=== PATIENT | male | born 1930 | race Caucasian/White ===

== ENCOUNTER 2019-05-06 20:22 | Emergency (ER) | payer OTHER ==
[~2019-05-06] VITALS: Ht 172.7 cm; Wt 72.6 kg
[~2019-05-06 20:22] MED LIST: ALBU90OI INH; ASCO500 PO; ASPI81CH PO; BUDE6HFA INH; CHOL10002 PO; DOXE75C PO; DULERA 100 MCG/13 GM INH; Duoneb 2.5-0.5 M3 ML IH; GEMF600 PO; HYDCOR2.5B TOP; LEVSOD75 PO; MONT10T PO; OMEPRAZOLE MAGN20 MG PO; PRIM50 PO; PROSTATE SUPPORT PO; Vitamin B Comple1 EA PO
[2019-05-06 20:46] LABS: BASOPHILS ABSOLUTE AUTO 0.03 K/mm3 (0.00-0.23); BASOPHILS PERCENT AUTO 1 % (0-2); EOSINOPHILS ABSOLUTE AUTO 0.18 K/mm3 (0.00-0.68); EOSINOPHILS PERCENT AUTO 4 % (0-6); Hematocrit 42.4 % (37.0-53.0); IMMATURE GRAN ABSOLUTE AUTO 0.01 K/mm3 (0.00-0.10); IMMATURE GRAN PERCENT AUTO 0 % (0-1); LYMPHOCYTES ABSOLUTE AUTO 0.91 K/mm3 (0.84-5.20); LYMPHOCYTES PERCENT AUTO 19 % (21-46); MONOCYTES ABSOLUTE AUTO 0.63 K/mm3 (0.16-1.47); MONOCYTES PERCENT AUTO 13 % (4-13); Mean Corpuscular Volume 91 fL (80-100); Mean Platelet Volume 10.1 fL (9.1-12.4); NEUTROPHILS ABSOLUTE AUTO 3.06 K/mm3 (1.96-9.15); NEUTROPHILS PERCENT AUTO 64 % (41-73); Platelet Count 191 K/mm3 (150-400); RDW Coefficient Variation 13.2 % (11.7-14.2); RDW Standard Deviation 44.3 fL (35.1-46.3); Red Blood Cell Count 4.66 M/mm3 (4.30-5.90); White Blood Cell Count 4.82 K/mm3 (4.00-11.30)
[2019-05-06 21:03] LABS: Alanine Aminotransfer (ALT/SGP 17 U/L (12-78); Albumin, Blood 3.5 g/dL (3.4-5.0); Albumin/Globulin Ratio 0.9 (0.8-1.8); Alk Phos 91 U/L (50-136); Anion Gap 3 mmol/L (6-16); Aspartate Aminotrans (AST/SGOT 20 U/L (12-37); Bilirubin, Total 0.4 mg/dL (0.1-1.0); Blood Urea Nitrogen 25 mg/dL (8-24); CO2, Blood 29 mmol/L (21-32); Calcium, Blood 8.9 mg/dL (8.5-10.1); Chloride, Blood 104 mmol/L (98-108); Creatinine, Blood 1.47 mg/dL (0.60-1.20); Ethanol (Alcohol), Blood, Med <3 mg/dL; Globulin, Blood 3.7 g/dL (2.2-4.0); Glomerular Filtration Rate 48 (60-); Glucose, Blood 97 mg/dL (70-99); Potassium, Blood 3.5 mmol/L (3.5-5.5); Sodium, Blood 136 mmol/L (136-145); Total Protein, Blood 7.2 g/dL (6.4-8.2)
[2019-05-06 21:49] LABS: Source, Urine Clean Catch
[2019-05-06 21:51] LABS: Bilirubin, Urine Neg (Neg); Blood, Urine Neg (Neg); Glucose Qualitative, Urine Neg (Neg); Ketones, Urine Neg (Neg); Leukocyte Esterase, Urine Neg (Neg); Nitrite, Urine Neg (Neg); Protein, Urine Neg (Neg); Urobilinogen, Urine NORM (Normal)
[2019-05-06 21:55] LABS: Appearance, Urine Clear (Clear); Color, Urine Yellow (P-Yellow)
[2019-05-06 22:06] LABS: U Amphetamine Screen Not Detected; U Barbituate Screen DETECTED; U Benzodiazapine Screen DETECTED; U Cocaine Screen Not Detected; U Methadone Screen Not Detected; U Methamphetamine Screen Not Detected; U Opiates Screen Not Detected
[2019-05-06 22:07] LABS: U Buprenorphine Screen Not Detected; U Cannabinoids Screen Not Detected; U Oxycodone Screen Not Detected; U Propoxyphene Screen Not Detected
== END 2019-05-07 02:08 | disposition home or self-care (01) ==
LOC: ER 20:22
PROVIDERS: Emergency Medicine
DX: G45.9 Transient cerebral ischemic attack, unspecified (principal); J44.9 Chronic obstructive pulmonary disease, unspecified; Z79.82 Long term (current) use of aspirin; Z79.899 Other long term (current) drug therapy; Z87.891 Personal history of nicotine dependence
CPT/HCPCS: 70450; 71046; 80053; 81003; 85025; 93005; 93010; 99285-25; G0480

== ENCOUNTER 2020-04-08 05:34 | Emergency (ER) | payer OTHER ==
[~2020-04-08] VITALS: Ht 172.7 cm; Wt 68.5 kg
[~2020-04-08 05:34] MED LIST changes: -ASPI81CH PO; +Aspirin EC81 MG PO
[2020-04-08] MEDS ORDERED: HYDR1TAB94 PO (06:52)
== END 2020-04-08 10:53 | disposition home or self-care (01) ==
LOC: ER 05:34
DX: S42.212A Unspecified displaced fracture of surgical neck of left humerus, initial encounter for closed fracture (principal); J44.9 Chronic obstructive pulmonary disease, unspecified; Z79.82 Long term (current) use of aspirin; Z79.51 Long term (current) use of inhaled steroids; Z79.899 Other long term (current) drug therapy; Z86.73 Personal history of transient ischemic attack (TIA), and cerebral infarction without residual deficits; Z87.891 Personal history of nicotine dependence; W18.30XA Fall on same level, unspecified, initial encounter
CPT/HCPCS: 29105; 73060; 96374-59; 99283-25; A9270; J3010

== ENCOUNTER 2020-04-15 15:38 | Inpatient (IN) | payer OTHER ==
[~2020-04-15] VITALS: Ht 172.7 cm; Wt 64.4 kg
[~2020-04-15 15:38] MED LIST changes: +HYDR1TAB94 PO
[2020-04-15 17:31] LABS: BASOPHILS ABSOLUTE AUTO 0.04 K/mm3 (0.00-0.23); BASOPHILS PERCENT AUTO 1 % (0-2); EOSINOPHILS ABSOLUTE AUTO 0.25 K/mm3 (0.00-0.68); EOSINOPHILS PERCENT AUTO 3 % (0-6); Hematocrit 41.9 % (37.0-53.0); Hemoglobin 13.5 g/dL (13.5-17.5); IMMATURE GRAN ABSOLUTE AUTO 0.04 K/mm3 (0.00-0.10); IMMATURE GRAN PERCENT AUTO 1 % (0-1); LYMPHOCYTES ABSOLUTE AUTO 0.63 K/mm3 (0.84-5.20); LYMPHOCYTES PERCENT AUTO 8 % (21-46); MONOCYTES ABSOLUTE AUTO 0.97 K/mm3 (0.16-1.47); MONOCYTES PERCENT AUTO 13 % (4-13); Mean Corpuscular HGB 28.4 pg (26.0-34.0); Mean Corpuscular HGB Conc 32.2 g/dL (31.5-36.5); Mean Corpuscular Volume 88 fL (80-100); Mean Platelet Volume 9.1 fL (9.1-12.4); NEUTROPHILS ABSOLUTE AUTO 5.79 K/mm3 (1.96-9.15); NEUTROPHILS PERCENT AUTO 75 % (41-73); Platelet Count 344 K/mm3 (150-400); RDW Standard Deviation 45.1 fL (35.1-46.3); Red Blood Cell Count 4.75 M/mm3 (4.30-5.90); White Blood Cell Count 7.72 K/mm3 (4.00-11.30)
[2020-04-15 17:48] LABS: Alanine Aminotransfer (ALT/SGP 45 U/L (12-78); Albumin, Blood 3.2 g/dL (3.4-5.0); Albumin/Globulin Ratio 0.8 (0.8-1.8); Alk Phos 94 U/L (50-136); Anion Gap 3 mmol/L (6-16); Aspartate Aminotrans (AST/SGOT 33 U/L (12-37); Bilirubin, Total 0.6 mg/dL (0.1-1.0); Blood Urea Nitrogen 32 mg/dL (8-24); Bun/Creatinine Ratio 28.1 (12.0-20.0); CO2, Blood 30 mmol/L (21-32); Calcium, Blood 8.7 mg/dL (8.5-10.1); Chloride, Blood 104 mmol/L (98-108); Creatinine, Blood 1.14 mg/dL (0.60-1.20); Globulin, Blood 3.9 g/dL (2.2-4.0); Glomerular Filtration Rate >60 (60-); Glucose, Blood 105 mg/dL (70-99); Potassium, Blood 3.8 mmol/L (3.5-5.5); Sodium, Blood 137 mmol/L (136-145); Total Protein, Blood 7.1 g/dL (6.4-8.2)
[2020-04-15 20:35] LABS: International Normalized Ratio 0.96; Prothrombin Time Results 10.3 Sec (9.7-11.5)
[2020-04-15] MEDS ORDERED: SYNTHROID125 MC1 PO (20:46)
[2020-04-15] MEDS ORDERED: TRAM50 PO (20:47)
[2020-04-15] MEDS ORDERED: Primidone50 MG PO (20:48)
[2020-04-15] MEDS ORDERED: OMEP20ER PO (20:48)
[2020-04-15 22:59] LABS: Influenza A, PCR Negative (NEGATIVE); Influenza B, PCR Negative (NEGATIVE); Resp Syncytial Virus, PCR Negative (NEGATIVE); SARS-Cov-2 (COVID-19) PCR, MMC Negative (NEGATIVE)
--- NOTE | 2020-04-16 01:00 | NUR ---
PT TO ICU 5 VIA [facility] WITH ED RN AND BODY DESIGNER. PT CONFUSED, SAYS WORDS BUT DOES NOT MAKE COMPLETE SENTENCES, FOLLOWS SOME COMMANDS. O2 SATURATIONS> 90% ON RA. MONITOR SHOWS SINUS RHYTHM WITH PAC'S, HTN NOTED WITH SBP 160'S. PER REPORT, PT RECENTLY TREATED FOR SHINGLES BY PCP, LESIONS NOTED TO BACK OF LEFT EAR AND BACK OF LEFT SIDE OF HEAD, L EAR HAS SCAB PRESENT, BACK OF HEAD HAS AN OPEN SORE WITH SEROUS DRAINAGE NOTED. SIGNIFICANT BRUISING NOTED TO PTS CHEST AND LEFT ARM, SEE PHOTO, Hx OF RECENT FALL CAUSING INJURIES TO CHEST AND L HUMERAL Fx. PT INCONTINENT OF URINE, ATTENDS IN PLACE. PT RESTING AT THIS TIME, DOES NOT APPEAR TO BE IN ANY PAIN.
[2020-04-16 03:42] LABS: BASOPHILS ABSOLUTE AUTO 0.04 K/mm3 (0.00-0.23); BASOPHILS PERCENT AUTO 1 % (0-2); EOSINOPHILS ABSOLUTE AUTO 0.18 K/mm3 (0.00-0.68); EOSINOPHILS PERCENT AUTO 2 % (0-6); Hematocrit 40.5 % (37.0-53.0); IMMATURE GRAN ABSOLUTE AUTO 0.04 K/mm3 (0.00-0.10); IMMATURE GRAN PERCENT AUTO 1 % (0-1); LYMPHOCYTES ABSOLUTE AUTO 1.03 K/mm3 (0.84-5.20); LYMPHOCYTES PERCENT AUTO 14 % (21-46); MONOCYTES ABSOLUTE AUTO 1.18 K/mm3 (0.16-1.47); MONOCYTES PERCENT AUTO 16 % (4-13); Mean Corpuscular HGB 28.6 pg (26.0-34.0); Mean Corpuscular HGB Conc 32.1 g/dL (31.5-36.5); Mean Corpuscular Volume 89 fL (80-100); Mean Platelet Volume 9.1 fL (9.1-12.4); NEUTROPHILS PERCENT AUTO 67 % (41-73); Platelet Count 299 K/mm3 (150-400); RDW Coefficient Variation 14.2 % (11.7-14.2); RDW Standard Deviation 45.3 fL (35.1-46.3); Red Blood Cell Count 4.55 M/mm3 (4.30-5.90); White Blood Cell Count 7.57 K/mm3 (4.00-11.30)
[2020-04-16 03:59] LABS: Anion Gap 6 mmol/L (6-16); Blood Urea Nitrogen 28 mg/dL (8-24); Bun/Creatinine Ratio 29.8 (12.0-20.0); CO2, Blood 29 mmol/L (21-32); Calcium, Blood 8.5 mg/dL (8.5-10.1); Chloride, Blood 105 mmol/L (98-108); Creatinine, Blood 0.94 mg/dL (0.60-1.20); Glomerular Filtration Rate >60 (60-); Glucose, Blood 104 mg/dL (70-99); Potassium, Blood 3.7 mmol/L (3.5-5.5); Sodium, Blood 140 mmol/L (136-145)
--- NOTE | 2020-04-16 06:42 | NUR ---
SHIFT SUMMARY PT RESTED WELL T/O SHIFT, SOME RESTLESSNESS AND AGITATION NOTED, MORPHINE ADMINISTERED FOR POSSIBLE PAIN WITH GOOD EFFECT. PT REMAINS VERY CONFUSED, ORIENTED TO SELF, FOLLOWS SOME COMMANDS, BUT DOES NOT RESPOND APPROPRIATELY TO QUESTIONS. L ARM REMAINS IMMOBILIZED, PT NPO FOR POSSIBLE SURGERY TODAY. CALL LIGHT WITHIN REACH.
--- NOTE | 2020-04-16 08:00 | NUR ---
ASSUMED CARE REPORT RECIEVED. PT IS LAYING IN BED MUMBLING INCOHERENTLY. PT AROUSES TO VERBAL STIMULI. PT IS CONFUSED, SPEECH IS GARBLED AND NONSENSICAL. PT IS RESTLESS/FIDGETING IN THE BED. LEFT ARM WITH IMOBILIZER SLING IN PLACE. SIGNIFICANT BRUISING TO LEFT SHOULDER AND CHEST NOTED. SCALING/SCABS NOTED TO LEFT BACK SIDE OF SCALP. VITAL SIGNS STABLE. PT WITH ATTENDS IN PLACE. NS INFUSING AT 75 ML/HR. WILL CONTINUE TO MONITOR.
--- NOTE | 2020-04-16 14:00 | NUR ---
PT CONFUSED AND TRYING TO GET OOB. HE CONTINUES TO REPORT LEFT SHOULDER PAIN. PT INCONTINENT OF URINE-BEDDING AND ARM IMMOBILIZER SATURATED IN URINE. PARTIAL BED BATH DONE, ATTENDS CHANGED, TORY VEST, AND SLING PLACED TO LEFT UPPER EXTREMITY. DR. DICKINSON UPDATED TO PT STATUS AND ORDERS GIVEN.
--- NOTE | 2020-04-16 17:32 | NUR ---
SHIFT SUMMARY NO ACUTE CHANGES THIS SHIFT. PT REMAINS CONFUSED AND FIDGETTING IN THE BED. PT UNABLE TO FOLLOW DIRECTIONS. PT WITH CONTINUED ATTEMPTS TO GET OOB. PT WITH TORY VEST IN PLACE. LEFT ARM REMAINS IN SLING. BRUISING TO LEFT ARM AND CHEST AREA REMAINS UNCHANGED. PT MED PER EMAR FOR PAIN. PT REMAINS NPO. PLAN FOR SURGERY REMAINS UNKNOWN. PT SPOUSE UPDATED MULTIPLE TIMES THIS SHIFT VIA PHONE. VITAL SIGNS REMAIN STABLE. ATTENDS IN PLACE. WILL CONTINUE TO MONITOR AND REPORT OFF TO ONCOMING RN.
--- NOTE | 2020-04-16 20:40 | NUR ---
PT TRANSFERED FROM ICU AT APPROX 2014. PT ALERT TO SELF ONLY. PATIENTS SPEECH IS INCOMPRHENSABLE AT TIMES. TORY VEST IN PLACE. PT GIVEN SCHEDULED MEDS WITH SIPS OF WATER AND MEDICATED WITH 25MG OF ULTRAM. GIVEN MEDS WHOLE WITH SIPS OF WATER. BRUISING SCATTERED TO CHEST AND LEFT ARM/SHOULDER/BACK. LEFT ARM IN SLING. LEFT SHOULDER APPEARS SWOLLEN. OPEN BLISTERS NOTED TO THE BACK OF PATIENTS HEAD. [place]NE PRECAUTIONS IN PLACE FOR ACTIVE SHINGLES. PATIENTS GIVEN AN UPDATE. CALL WAS THEN TRANSFERED INTO PATIENTS ROOM AND THEY ARE CURRENTLY SPEAKING ON THE PHONE.
--- NOTE | 2020-04-16 20:59 | NUR ---
DR GLORIA IN TO SEE PATIENT AT APPROX 0. ORDER FOR IMMOBILIZER TO BE PLACED TO LEFT ARM AND TO HOLD ALL BLOOD THINNERS. WILL KEEP PATIENT NPO AT MIDNIGHT FOR POSSIBLE SURGERY.
--- NOTE | 2020-04-17 18:17 | NUR ---
SHIFT SUMMARY PT HAS CONTINUED TO HAVE SOME CONFUSION T/O SHIFT HOWEVER, DOES COMMUNICATE NEEDS/ANSWERS QUESTIONS. PT WITH TORY VEST IN PLACE, CONTINUE WITH Q2 RESTRAINT CHECKS. L ARM IN IMOBILIZER, BRUISING TO L ARM/CHEST WALL. PT INCONTINENT, COOPERATIVE WITH REPOSITIONING AND CHANGES.
[2020-04-18 05:00] LABS: Hematocrit 38.2 % (37.0-53.0); Hemoglobin 12.2 g/dL (13.5-17.5); Mean Corpuscular HGB 28.5 pg (26.0-34.0); Mean Corpuscular HGB Conc 31.9 g/dL (31.5-36.5); Mean Corpuscular Volume 89 fL (80-100); Mean Platelet Volume 8.8 fL (9.1-12.4); Platelet Count 294 K/mm3 (150-400); RDW Coefficient Variation 14.5 % (11.7-14.2); RDW Standard Deviation 46.6 fL (35.1-46.3); Red Blood Cell Count 4.28 M/mm3 (4.30-5.90); White Blood Cell Count 6.29 K/mm3 (4.00-11.30)
--- NOTE | 2020-04-18 05:09 | NUR ---
SHIFT SUMMARY: CAMILLE REMAINS CONFUSED, ORIENTED TO PERSON ONLY. ATTENDS IN PLACE, INCONTINENT. HE HAS NOT USED HIS CALL LIGHT THIS SHIFT. HE IS TOLERATING PO INTAKE WELL. TORY IN PLACE, CONTINUE Q2 CHECKS AND REPOSITIONING. BRUISING TO LEFT ARM, CHEST AND FLANK. IV TO ARYA PATENT. HE HAS RESTED INTERMITTENTLY THIS SHIFT. HE IS COOPERATIVE WITH CARE. HE IS LYING IN BED WITH HIS CALL LIGHT IN REACH. WILL REPORT TO DAY SHIFT RN.
[2020-04-18 05:29] LABS: Albumin, Blood 2.6 g/dL (3.4-5.0); Anion Gap 5 mmol/L (6-16); Blood Urea Nitrogen 23 mg/dL (8-24); Bun/Creatinine Ratio 25.1 (12.0-20.0); CO2, Blood 27 mmol/L (21-32); Calcium, Blood 8.2 mg/dL (8.5-10.1); Chloride, Blood 107 mmol/L (98-108); Creatinine, Blood 0.92 mg/dL (0.60-1.20); Glomerular Filtration Rate >60 (60-); Glucose, Blood 89 mg/dL (70-99); Potassium, Blood 3.9 mmol/L (3.5-5.5); Sodium, Blood 139 mmol/L (136-145)
--- NOTE | 2020-04-18 18:03 | NUR ---
SHIFT SUMMARY PT ALERT TO SELF ONLY AND COOPERATIVE WITH CARE. PT REMAINS IN A TORY VEST DUE TO BEING A HIGH FALL RISK AND TRYING TO PERIODICALLY GET OUT OF BED ON HIS OWN. IMMOBILIZER TO L ARM. MEDICATED FOR PAIN X2 THIS SHIFT. PT HAS BEEN VERY SLEEPY THIS SHIFT AND HAS BEEN RESTING FOR THE MAJORITY OF IT. X RAY TO R SHOULDER. VSS; WILL REPORT TO AUDRA NOWAK.
--- NOTE | 2020-04-19 05:57 | NUR ---
SHIFT SUMMARY: VSS, NO ACUTE EVENTS OVERNIGHT. HE HAS DISROBED AND REMOVED HIS IMMOBILIZER SEVERAL TIMES THIS SHIFT. HE DID EAT ONE AND A HALF IRVING CRACKERS AND TAKE TWO SIPS OF WATER AT 0420 WITH THE PAIN PILL. HE HAS BEEN COMPLAINING OF A HEADACHE THIS MORNING. IV TO R UPPER ARM PATENT. HE HAS USED THE CALL LIGHT A FEW TIMES THIS SHIFT. Q2 REPOSITIONING AND RESTRAINT CHECKS. WILL REPORT TO DAY SHIFT RN.
--- NOTE | 2020-04-19 21:55 | NUR ---
RESTRAINTS ON MULTIPLE ATTEMPTS TO GET OOB THIS SHIFT. PT CONFUSED, HX OF MULTIPLE FALLS. MANY ATTEMPTS TO REDIRECT WITHOUT SUCCESS. SPOKE WITH DONNIE PT PLACED IN TORY VEST. SAFETY MEASURES IN PLACE.
--- NOTE | 2020-04-20 03:55 | NUR ---
SHIFT SUMMARY ALERT TO SELF ONLY. FOLLOWS COMMANDS AT TIMES. CONFUSED WITH NONSENSICAL SPEECH. RE-ORIENTS EASILY AND REMEMBERS THAT HE IS AT THE HOSPITAL; HOWEVER SHORT LIVED. BEGINNING OF SHIFT, CONTINUALLY ATTEMPTING TO EXIT THE BED. PLACED IN TORY VEST FOR SAFETY. HAS HAD URGENCY/FREQUENCY T/O SHIFT; NEEDING TO VOID OFTEN. MULTIPLE BED CHANGES. C/O PAIN TO L SHOULDER/SIDE; MEDICATED PER EMAR. DID NOT REST MUCH OVERNIGHT. REMAINED ON RA; RESPIRATIONS EVEN WITH EQUAL RISE/FALL. HYPERTENSIVE THIS AM; WILL MEDICATE PER EMAR AND THEN RE-CHECK. BED REMAINED IN LOWEST POSITION; ALARM ON. CALL LIGHT WITHIN REACH; DOES NOT UTILIZE. CONTINUE WITH CURRENT PLAN OF CARE. REPORT TO ONCOMING RN.
[2020-04-20 05:30] LABS: Hematocrit 39.9 % (37.0-53.0); Hemoglobin 12.3 g/dL (13.5-17.5); Mean Corpuscular HGB Conc 30.8 g/dL (31.5-36.5); Mean Corpuscular Volume 91 fL (80-100); Mean Platelet Volume 9.7 fL (9.1-12.4); Platelet Count 240 K/mm3 (150-400); RDW Coefficient Variation 14.5 % (11.7-14.2); RDW Standard Deviation 48.5 fL (35.1-46.3); White Blood Cell Count 6.58 K/mm3 (4.00-11.30)
[2020-04-20 05:52] LABS: Albumin, Blood 2.6 g/dL (3.4-5.0); Anion Gap 6 mmol/L (6-16); Blood Urea Nitrogen 15 mg/dL (8-24); Bun/Creatinine Ratio 15.4 (12.0-20.0); CO2, Blood 24 mmol/L (21-32); Calcium, Blood 8.3 mg/dL (8.5-10.1); Chloride, Blood 109 mmol/L (98-108); Creatinine, Blood 0.97 mg/dL (0.60-1.20); Glomerular Filtration Rate >60 (60-); Glucose, Blood 99 mg/dL (70-99); Phosphorus, Blood 3.1 mg/dL (2.5-4.9); Potassium, Blood 4.1 mmol/L (3.5-5.5); Sodium, Blood 139 mmol/L (136-145)
--- NOTE | 2020-04-20 09:39 | NUR ---
PT ATTEMPTED OOB AT THIS TIME, PT REPORTS NEEDING TO VOID AND TRYING TO REMOVED POSY VEST. PT HIGH FALL RISK AND CONFUSED. PT HELPED TO VOID AND POSY VEST REAPPLIED BY CINDER BLOCK MAKER MARIA AND OTONIEL QUIÑONES. SEE RESTRAINT ASSESSMENT, WILL CTM PT AND REORIENT.
--- NOTE | 2020-04-20 11:23 | NUR ---
PT'S BLOOD CONSENT SIGNED BY PT'S AT THIS TIME
--- NOTE | 2020-04-20 14:02 | NUR ---
PT TO SURGERY AT THIS TIME
--- NOTE | 2020-04-20 15:51 | NUR ---
04/20/20 1551 Ken Maxwell LEFT INTERSCALENE BLOCK DONE PER DR. PATE AFTER INDUCTION PRIOR TO SURGERY. TIME OUR PREFORMED.
--- NOTE | 2020-04-20 17:14 | NUR ---
POST OP: REPORT RECEIVED FROM RESPITE COORDINATORKAYLENE NOWAK AT 1702
--- NOTE | 2020-04-20 18:34 | NUR ---
POST OP: PER CERTIFIED [employer] CLAIMS ADJUSTER PT CONFUSED, AGGRESIVE AND COMBATIVE WHEN BROUGHT BACK TO ROOM FROM SURGERY. PT GRABBED ARM OF DEPUTY CORONER AND HELD FOR SEVERAL SECONDS AND WOULD NOT LET GO, RN HAD TO TWIST ARM AWAY. PT PROCEEDED TO KICK OFF SHEETS AND TRIED TO GRAB AT OTONIEL QUIÑONES. TORY VEST REAPPLIED BY NURIA AND ANA BOOGIE RN, BED ALARM ON AND REMOTE MONITORING. WILL CTM. VSS AT THIS TIME, SURGICAL SITE WNL. PT PULLED AT SLING AND TOOK OFF. CSM INTACT TO L ARM, UNABLE TO ASSESS SENSATION, PT NOT ANSWERING MOST QUESTIONS ALTHOUGH DID DENY PAIN. PT FAMILY ENTERED ROOM SHORTLY AFTER THE ABOVE EVENT AND PT ABLE TO CALM DOWN SOME. WILL CTM AND REPORT TO NOC RN.
--- NOTE | 2020-04-21 05:09 | NUR ---
SHIFT SUMMARY: PT POD#1 FOR ORIF TO LUE. AQUACEL AND SLING IN PLACE. PT ABLE TO WIGGLE FINGERS. CAP REFILL WNL. PT DROWSY SINCE SURGERY BUT WAKES EASILY. VS WNL THROUGHOUT NIGHT. PT PUT ON 3LO2 FOR A SHORT TIME BUT IS NOW STABLE ON RA. PT CONTINUES TO BE CONFUSED AND IS A&O TO SELF ONLY. NONSENSICAL MOST OF SHIFT. TORY IN PLACE. CALM AND COOPERATIVE WITH CARE. PT INCONTINENT AND VOIDING IN ATTENDS. 1-2 ASSIST MINIMAL ASSIST FOR REPOSITIONING. PT REQUIRING ASSISTANCE FOR PO INTAKE. TOLERATING SIPS OF WATER AND JELLO. MEDICATIONS GIVEN CRUSHED IN APPLE SAUCE. MEDICATED WITH TYLENOL IN BEGINNING OF SHIFT PT STATED "I FEEL SORE" AFTER WAKING UP. PT REPORTS FEELING COMFORTABLE THIS MORNING. PT RESTING MOST OF SHIFT.
--- NOTE | 2020-04-21 07:48 | NUR ---
PT SLEEPING WAKES TO VERBAL STIMULI HELPED PT WITH URINAL
--- NOTE | 2020-04-21 09:30 | NUR ---
meds given as sched crushed with applesauce pt assisted to eat breakfast
--- NOTE | 2020-04-21 11:07 | NUR ---
pt working with ot
--- NOTE | 2020-04-21 11:31 | NUR ---
dr badillo by to see pt pt oob to bathroom with ot used bathroom light and callight up in recliner removed mohinder vest restraint pt able to remeber my name t/o the shift
--- NOTE | 2020-04-21 12:55 | NUR ---
pt's family at bedside awaiting h/h orders and equipment dressing supplies given
--- NOTE | 2020-04-21 14:23 | NUR ---
dr badillo called ot at bedside working with pt wanting to talk with family re discharge
[2020-04-21] MEDS ORDERED: LIDO700A20 TOP (15:01)
[2020-04-21] MEDS ORDERED: POLYETHYLENE G500 G1 PO (15:01)
--- NOTE | 2020-04-21 15:54 | NUR ---
discharge instructions reviewed with pt and his brother in law to [employer] supplies at [facility] also called in rx to [facility]anos no acute changes wc escort to car
== END 2020-04-21 15:42 | disposition home health service (06) | DRG 492 ==
LOC: ER 15:38 → ICUE 15:39 → SURS 15:39 → ERHOLD 15:39 → ICUE 04-16 00:49 → SURS 04-16 20:04
PROVIDERS: Internal Medicine; Nurse Practitioner Acute Care; Orthopaedic Surgery; Physician Assistant; ADMIT Internal Medicine
PROC: 8E0ZXY6 Isolation (ICD-10-PCS; 2020-04-19)
PROC: 0PSG04Z Reposition Left Humeral Shaft with Internal Fixation Device, Open Approach (ICD-10-PCS; principal; 2020-04-20 14:00)
DX: S42.202A Unspecified fracture of upper end of left humerus, initial encounter for closed fracture (principal); G92 Toxic encephalopathy; J44.9 Chronic obstructive pulmonary disease, unspecified; I12.9 Hypertensive chronic kidney disease with stage 1 through stage 4 chronic kidney disease, or unspecified chronic kidney disease; N18.30 Chronic kidney disease, stage 3 unspecified; Z20.822 Contact with and (suspected) exposure to COVID-19; E78.5 Hyperlipidemia, unspecified; E03.9 Hypothyroidism, unspecified; K21.9 Gastro-esophageal reflux disease without esophagitis; N40.0 Benign prostatic hyperplasia without lower urinary tract symptoms; B02.9 Zoster without complications; Z86.73 Personal history of transient ischemic attack (TIA), and cerebral infarction without residual deficits; Z87.891 Personal history of nicotine dependence; Z79.82 Long term (current) use of aspirin; E86.0 Dehydration
CPT/HCPCS: 0241U; 36415; 70450; 73030; 80048; 80053; 80069; 85025; 85027; 85610; 85730; 86850; 86900; 86901; 93005; 93010; 94760; 96374; 96375; 96376; 97110; 97116; 97161; 97164; 97166; 97530; 97535; 99285-25; A9270; C1713; G0378; J0360; J0690; J1100; J1170; J1885; J2060; J2270; J2370; J2405; J2704; J3010; J7030

== ENCOUNTER 2020-05-11 13:07 | Emergency (ER) | payer OTHER ==
[~2020-05-11] VITALS: Ht 172.7 cm; Wt 64.0 kg
[~2020-05-11 13:07] MED LIST changes: +LIDO700A20 TOP; +OMEP20ER PO; +POLYETHYLENE G500 G1 PO; +Primidone50 MG PO; +SYNTHROID125 MC1 PO; +TRAM50 PO
[2020-05-11 14:32] LABS: BASOPHILS ABSOLUTE AUTO 0.06 K/mm3 (0.00-0.23); BASOPHILS PERCENT AUTO 1 % (0-2); EOSINOPHILS ABSOLUTE AUTO 0.44 K/mm3 (0.00-0.68); EOSINOPHILS PERCENT AUTO 7 % (0-6); Hematocrit 36.2 % (37.0-53.0); Hemoglobin 11.7 g/dL (13.5-17.5); IMMATURE GRAN ABSOLUTE AUTO 0.03 K/mm3 (0.00-0.10); IMMATURE GRAN PERCENT AUTO 1 % (0-1); LYMPHOCYTES ABSOLUTE AUTO 0.54 K/mm3 (0.84-5.20); LYMPHOCYTES PERCENT AUTO 8 % (21-46); MONOCYTES ABSOLUTE AUTO 1.05 K/mm3 (0.16-1.47); MONOCYTES PERCENT AUTO 16 % (4-13); Mean Corpuscular HGB 28.4 pg (26.0-34.0); Mean Corpuscular HGB Conc 32.3 g/dL (31.5-36.5); Mean Corpuscular Volume 88 fL (80-100); Mean Platelet Volume 9.1 fL (9.1-12.4); NEUTROPHILS ABSOLUTE AUTO 4.45 K/mm3 (1.96-9.15); NEUTROPHILS PERCENT AUTO 68 % (41-73); Platelet Count 365 K/mm3 (150-400); RDW Coefficient Variation 14.8 % (11.7-14.2); Red Blood Cell Count 4.12 M/mm3 (4.30-5.90); White Blood Cell Count 6.57 K/mm3 (4.00-11.30)
[2020-05-11 14:59] LABS: Alanine Aminotransfer (ALT/SGP 28 U/L (12-78); Albumin, Blood 2.7 g/dL (3.4-5.0); Albumin/Globulin Ratio 0.6 (0.8-1.8); Alk Phos 182 U/L (50-136); Anion Gap 1 mmol/L (6-16); Aspartate Aminotrans (AST/SGOT 16 U/L (12-37); Bilirubin, Total 0.6 mg/dL (0.1-1.0); Blood Urea Nitrogen 21 mg/dL (8-24); Bun/Creatinine Ratio 21.4 (12.0-20.0); CO2, Blood 30 mmol/L (21-32); Calcium, Blood 8.9 mg/dL (8.5-10.1); Chloride, Blood 101 mmol/L (98-108); Creatinine, Blood 0.98 mg/dL (0.60-1.20); Globulin, Blood 4.3 g/dL (2.2-4.0); Glomerular Filtration Rate >60 (60-); Glucose, Blood 103 mg/dL (70-99); Potassium, Blood 3.8 mmol/L (3.5-5.5); Sodium, Blood 132 mmol/L (136-145)
[2020-05-11] MEDS ORDERED: NEURONTIN300 MG PO (16:11)
[2020-05-11] MEDS ORDERED: XARELTO20 MG PO (16:12)
== END 2020-05-11 17:06 | disposition home or self-care (01) ==
LOC: ER 13:07
PROVIDERS: Emergency Medicine
DX: R53.1 Weakness (principal); B02.9 Zoster without complications; Z79.82 Long term (current) use of aspirin; Z79.899 Other long term (current) drug therapy; Z86.73 Personal history of transient ischemic attack (TIA), and cerebral infarction without residual deficits; J44.9 Chronic obstructive pulmonary disease, unspecified
CPT/HCPCS: 36415; 71046; 80053; 85025; 93005; 93010; 99284-25; A9270

== ENCOUNTER 2020-06-14 05:44 | Emergency (ER) | payer OTHER ==
[~2020-06-14] VITALS: Ht 177.8 cm; Wt 63.5 kg
[~2020-06-14 05:44] MED LIST changes: +NEURONTIN300 MG PO; +XARELTO20 MG PO
[2020-06-14 06:08] LABS: BASOPHILS ABSOLUTE AUTO 0.05 K/mm3 (0.00-0.23); BASOPHILS PERCENT AUTO 1 % (0-2); EOSINOPHILS ABSOLUTE AUTO 0.21 K/mm3 (0.00-0.68); EOSINOPHILS PERCENT AUTO 3 % (0-6); Hematocrit 40.7 % (37.0-53.0); IMMATURE GRAN ABSOLUTE AUTO 0.02 K/mm3 (0.00-0.10); IMMATURE GRAN PERCENT AUTO 0 % (0-1); LYMPHOCYTES ABSOLUTE AUTO 0.78 K/mm3 (0.84-5.20); LYMPHOCYTES PERCENT AUTO 10 % (21-46); MONOCYTES ABSOLUTE AUTO 0.92 K/mm3 (0.16-1.47); MONOCYTES PERCENT AUTO 12 % (4-13); Mean Corpuscular HGB Conc 31.9 g/dL (31.5-36.5); Mean Corpuscular Volume 88 fL (80-100); Mean Platelet Volume 9.1 fL (9.1-12.4); NEUTROPHILS ABSOLUTE AUTO 5.98 K/mm3 (1.96-9.15); NEUTROPHILS PERCENT AUTO 75 % (41-73); Platelet Count 287 K/mm3 (150-400); RDW Coefficient Variation 14.1 % (11.7-14.2); RDW Standard Deviation 45.3 fL (35.1-46.3); Red Blood Cell Count 4.65 M/mm3 (4.30-5.90); White Blood Cell Count 7.96 K/mm3 (4.00-11.30)
[2020-06-14 06:31] LABS: Alanine Aminotransfer (ALT/SGP 15 U/L (12-78); Albumin, Blood 2.9 g/dL (3.4-5.0); Albumin/Globulin Ratio 0.7 (0.8-1.8); Alk Phos 142 U/L (50-136); Anion Gap 5 mmol/L (6-16); Aspartate Aminotrans (AST/SGOT 11 U/L (12-37); Bilirubin, Total 0.6 mg/dL (0.1-1.0); Blood Urea Nitrogen 20 mg/dL (8-24); CO2, Blood 28 mmol/L (21-32); Calcium, Blood 8.7 mg/dL (8.5-10.1); Chloride, Blood 106 mmol/L (98-108); Creatinine, Blood 1.11 mg/dL (0.60-1.20); Globulin, Blood 4.3 g/dL (2.2-4.0); Glomerular Filtration Rate >60 (60-); Glucose, Blood 97 mg/dL (70-99); Potassium, Blood 3.8 mmol/L (3.5-5.5); Sodium, Blood 139 mmol/L (136-145); Total Protein, Blood 7.2 g/dL (6.4-8.2); Troponin I <0.015 ng/mL (0.000-0.040)
== END 2020-06-14 07:22 | disposition home or self-care (01) ==
LOC: ER 05:44
PROVIDERS: Emergency Medicine
DX: S01.01XA Laceration without foreign body of scalp, initial encounter (principal); X58.XXXA Exposure to other specified factors, initial encounter
CPT/HCPCS: 12004; 70450; 72125; 80053; 84484; 85025; 93005; 93010; 99284-25

== ENCOUNTER 2020-06-29 01:53 | Emergency (ER) | payer OTHER ==
[~2020-06-29] VITALS: Ht 172.7 cm; Wt 64.0 kg
[2020-06-29] MEDS ORDERED: TAMS.4ER PO (02:15)
[2020-06-29 02:19] LABS: BASOPHILS ABSOLUTE AUTO 0.04 K/mm3 (0.00-0.23); BASOPHILS PERCENT AUTO 1 % (0-2); EOSINOPHILS ABSOLUTE AUTO 0.27 K/mm3 (0.00-0.68); EOSINOPHILS PERCENT AUTO 5 % (0-6); Hematocrit 39.7 % (37.0-53.0); Hemoglobin 12.7 g/dL (13.5-17.5); IMMATURE GRAN ABSOLUTE AUTO 0.01 K/mm3 (0.00-0.10); IMMATURE GRAN PERCENT AUTO 0 % (0-1); LYMPHOCYTES ABSOLUTE AUTO 0.87 K/mm3 (0.84-5.20); LYMPHOCYTES PERCENT AUTO 17 % (21-46); MONOCYTES ABSOLUTE AUTO 0.62 K/mm3 (0.16-1.47); MONOCYTES PERCENT AUTO 12 % (4-13); Mean Corpuscular HGB 28.1 pg (26.0-34.0); Mean Corpuscular Volume 88 fL (80-100); Mean Platelet Volume 9.5 fL (9.1-12.4); NEUTROPHILS ABSOLUTE AUTO 3.39 K/mm3 (1.96-9.15); NEUTROPHILS PERCENT AUTO 65 % (41-73); Platelet Count 257 K/mm3 (150-400); RDW Coefficient Variation 13.9 % (11.7-14.2); RDW Standard Deviation 44.8 fL (35.1-46.3); Red Blood Cell Count 4.52 M/mm3 (4.30-5.90)
[2020-06-29 02:40] LABS: Alanine Aminotransfer (ALT/SGP 13 U/L (12-78); Albumin, Blood 2.8 g/dL (3.4-5.0); Albumin/Globulin Ratio 0.7 (0.8-1.8); Alk Phos 139 U/L (50-136); Anion Gap 4 mmol/L (6-16); Aspartate Aminotrans (AST/SGOT 13 U/L (12-37); Bilirubin, Total 0.4 mg/dL (0.1-1.0); Blood Urea Nitrogen 18 mg/dL (8-24); Bun/Creatinine Ratio 18.1 (12.0-20.0); CO2, Blood 29 mmol/L (21-32); CPK Creatine Kinase 28 U/L (39-308); Chloride, Blood 110 mmol/L (98-108); Creatinine, Blood 0.99 mg/dL (0.60-1.20); Globulin, Blood 3.8 g/dL (2.2-4.0); Glomerular Filtration Rate >60 (60-); Glucose, Blood 88 mg/dL (70-99); Potassium, Blood 3.5 mmol/L (3.5-5.5); Sodium, Blood 143 mmol/L (136-145); Total Protein, Blood 6.6 g/dL (6.4-8.2); Troponin I <0.015 ng/mL (0.000-0.040)
[2020-06-29 02:48] LABS: Source, Urine Clean Catch
[2020-06-29 02:59] LABS: Bilirubin, Urine Neg (Neg); Blood, Urine Neg (Neg); Glucose Qualitative, Urine Neg (Neg); Ketones, Urine Neg (Neg); Leukocyte Esterase, Urine Neg (Neg); Nitrite, Urine Neg (Neg); Protein, Urine Neg (Neg); Urobilinogen, Urine NORM (Normal)
[2020-06-29 03:07] LABS: Appearance, Urine Clear (Clear); Color, Urine Yellow (P-Yellow)
[2020-06-29] MEDS ORDERED: CEFP200 PO (17:42)
[2020-06-29] MEDS ORDERED: Zithromax250 MG PO (17:42)
== END 2020-06-29 08:50 | disposition home or self-care (01) ==
LOC: ER 01:53
PROVIDERS: Emergency Medicine
DX: R53.1 Weakness (principal); Z79.899 Other long term (current) drug therapy; Z79.82 Long term (current) use of aspirin; Z79.01 Long term (current) use of anticoagulants
CPT/HCPCS: 70450; 71046; 72125; 80053; 81003; 82550; 84484; 85025; 93005; 93010; 99285-25; J7030